=== PATIENT | male | born 1975 | race Caucasian/White ===

== ENCOUNTER 2024-04-25 01:25 | Emergency (ER) | payer OTHER ==
[~2024-04-25] VITALS: Ht 175.3 cm; Wt 102.1 kg
[2024-04-25 01:27] VITALS: BP 159/106; PULSE 104; RESP 18; TEMP 97.9; O2SAT 98
[2024-04-25] MEDS: CLONIDINE HYDROCHLORIDE 0.1 MG TAB PO ONE (01:44)
[2024-04-25 02:17] VITALS: BP 149/104; PULSE 101; RESP 18; TEMP 98; O2SAT 99
== END 2024-04-25 02:17 ==
LOC: MED 01:25
DX: I10 Essential (primary) hypertension (principal); Z02.89 Encounter for other administrative examinations
CPT/HCPCS: 99283